=== PATIENT | male | born 1985 | race African-American/Black ===

== ENCOUNTER 2021-05-12 20:10 | Emergency (ER) | payer OTHER, SELFPAY ==
--- NOTE | ~2021-05-12 | XR_ITS ---
EXAMINATION: XR shoulder RT min 2V INDICATION: Right shoulder pain TECHNIQUE: Four views of the right shoulder are submitted. COMPARISON: None FINDINGS: Normal alignment. No fracture. Glenohumeral and acromioclavicular joint spaces are normal. Soft tissues are unremarkable. IMPRESSION: 1. No acute osseous abnormality. Reviewed, dictated and finalized at location F. OR [employer] ADMINISTRATOR
[2021-05-12 20:17] VITALS: BP 129/68; PULSE 71; RESP 15; TEMP 36.7; O2SAT 100
[2021-05-12] MEDS: IBUPROFEN 400 MG TABLET 800 MG PO (21:45)
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
[2021-05-12 22:58] VITALS: BP 139/85; PULSE 58; RESP 16; O2SAT 98
== END 2021-05-12 22:58 | disposition home or self-care (01) ==
PROVIDERS: Emergency Provider General Practice
DX: S46.911A Strain of unspecified muscle, fascia and tendon at shoulder and upper arm level, right arm, initial encounter (principal); S13.4XXA Sprain of ligaments of cervical spine, initial encounter; V43.52XA Car driver injured in collision with other type car in traffic accident, initial encounter
CPT/HCPCS: 73030; 99283; A9270